=== PATIENT | female | born 1935 | race Caucasian/White ===

== ENCOUNTER → 2021-01-11 | Outpatient (CLI) | payer OTHER | LOC: MRI 10:20 | PROVIDERS: ATTEND Psychiatry & Neurology Neuromuscular Medicine | DX: R90.82 White matter disease, unspecified (principal); R42 Dizziness and giddiness ==

== ENCOUNTER → 2021-03-22 | Outpatient (CLI) | payer OTHER ==
--- NOTE | 2021-03-22 13:55 | 2DMMODE ---
[facility] [place] [address] 2 D/M-MODE ECHOCARDIOGRAM Name: GUADALUPE Room #: SANDY Olmedo#: [id number] Admission: 03/22/21 Attend Phys: Macario Smith MD Discharge: Date of : 33 Report #: [id number] THIS REPORT FOR: cc: FAM - Family physician unknown FAM - Family physician unknown Sonny Burleson MD [facility] ~ APPROVED REPORT Study performed: 03/22/2021 12:54:15 EXAM: Comprehensive 2D, Doppler, and color-flow Echocardiogram Patient Location: Out-Patient Status: routine BSA: 1.81 HR: 75 bpm Rhythm: Regular Other Information Study Quality: Poor/Suboptimal/Poor doppler angles. Technically limited study due to scanned with patient hunched over in wheelchair. Indications CVA. Dementia. 2D Dimensions IVSd: 11.80 (7-11mm) LVOT Diam: 18.92 (18-24mm) LVDd: 29.13 mm PWd: 12.29 (7-11mm) Ascending Ao: 27.97 (22-36mm) LVDs: 20.77 (25-40mm) Left Atrium: 32.83 (27-40mm) Aortic Root: 28.29 mm Aortic Valve AoV Peak Deep.: 1.01 m/s AO Peak Gr.: 4.06 mmHg Mitral Valve E/A Ratio: 0.6 MV Decel. Time: 273.58 ms MV E Max Deep.: 0.47 m/s MV A Deep.: 0.77 m/s [facility] [address] [place] [address] 2 D/M-MODE ECHOCARDIOGRAM Name: GUADALUPE Room #: SANDY JUAN Olmedo#: [id number] Admission: 03/22/21 Attend Phys: Macario Smith, Discharge: Date of : 33 Report #: [id number] MV PHT: 79.34 ms Pulmonary Valve PV Peak Deep.: 0.96 m/s PV Peak Gr.: 3.66 mmHg Tricuspid Valve TR Peak Deep.: 1.86 m/s TR Peak Gr.: 14.00 mmHg Left Ventricle The left ventricle is normal size. Left ventricular hypertrophy noted. Left ventricular systolic function is normal. LVEF is 55%. Mild diastolic dysfunction is present (impaired relaxation pattern). Right Ventricle Right ventricle is poorly visualized. Atria Atria appear normal in size. Aortic Valve Aortic valve is mildly calcified. No aortic regurgitation is noted. There is no aortic valvular stenosis. Mitral Valve Mild mitral annular calcification. There is no mitral valve regurgitation noted. Tricuspid Valve The tricuspid valve is normal in structure. Trace tricuspid regurgitation. No pulmonary hypertension. Pulmonic Valve The pulmonary valve is normal in structure. Trace pulmonic regurgitation. Great Vessels The aortic root is normal in size. The ascending aorta is normal in size. IVC is poorly visualized. Pericardium There is no pericardial effusion. <Conclusion> Technically a difficult study [facility] [address] [place] [address] 2 D/M-MODE ECHOCARDIOGRAM Name: GUADALUPE Room #: [facility] JUAN Olmedo#: [id number] Admission: 03/22/21 Attend Phys: Macario Smith, Discharge: Date of : 33 Report #: [id number] Normal left ventricle size with mild concentric hypertrophy Ejection fraction 55% Normal right ventricular size/function Normal atrial size Mild aortic valve sclerosis without stenosis Mild mitral annular calcification Trace tricuspid valve insufficiency Normal aortic root size No pericardial effusion <ELECTRONICALLY SIGNED> By: Sonny Burleson MD, FACC 03/22/21 1355 54 Sonny Burleson MD, FACC /INF
[2021-03-24 12:06] LABS: ANTI-DNA SCREEN <1 IU/mL (0-9); ANTI-RNP <0.2 AI (0.0-0.9)
== END ==
LOC: CV 09:01
PROVIDERS: ATTEND Psychiatry & Neurology Neuromuscular Medicine
DX: I65.23 Occlusion and stenosis of bilateral carotid arteries (principal); I08.0 Rheumatic disorders of both mitral and aortic valves; E08.49 Diabetes mellitus due to underlying condition with other diabetic neurological complication; G62.9 Polyneuropathy, unspecified; F03.90 Unspecified dementia, unspecified severity, without behavioral disturbance, psychotic disturbance, mood disturbance, and anxiety; R26.9 Unspecified abnormalities of gait and mobility